=== PATIENT | female | born 1950 | race Caucasian/White ===

== ENCOUNTER 2016-09-25 09:27 | Outpatient (CLI) | payer MEDICARE, OTHER ==
[2016-09-25 18:41] LABS: BASOPHILS % (AUTO) 0.5 %; EOSINOPHILS # (AUTO) 0.3 10^3/uL (0.0-0.7); EOSINOPHILS % (AUTO) 4.7 %; HCT - HEMATOCRIT 45.4 % (37.0-47.0); HGB - HEMOGLOBIN 15.3 g/dL (12.0-16.0); LYMPHOCYTES # (AUTO) 2.9 10^3/uL (1.5-3.5); LYMPHOCYTES % (AUTO) 47.2 %; MEAN CORPUSCULAR HEMOGLOBIN 33.2 pg (27.0-31.0); MEAN CORPUSCULAR HGB CONC 33.7 g/dL (32.0-36.0); MEAN CORPUSCULAR VOLUME 98.6 fL (81.0-99.0); MEAN PLATELET VOLUME 8.2 fL (7.9-10.8); MONOCYTES # (AUTO) 0.5 10^3/uL (0.0-1.0); MONOCYTES % (AUTO) 8.4 %; NEUTROPHILS # (AUTO) 2.4 10^3/uL (1.5-6.6); NEUTROPHILS % (AUTO) 39.2 %; NUCLEATED RED BLOOD CELLS AUTO 0.1 /100WBC; RED CELL DISTRIBUTION WIDTH 15.2 % (12.0-15.0); UNCORRECTED WHITE BLOOD COUNT 6.1 x10^3/uL; WHITE BLOOD COUNT 6.1 x10^3/uL (4.8-10.8)
[2016-09-25 18:42] LABS: BILIRUBIN,URINE NEGATIVE (NEGATIVE)
[2016-09-25 18:58] LABS: UA w/ MICROSCOPIC CHARGE YES
[2016-09-25 19:04] LABS: ALBUMIN/GLOBULIN RATIO 1.4 (1.0-2.2); BILIRUBIN,TOTAL 0.4 mg/dL (0.2-1.0); BUN - BLOOD UREA NITROGEN 17 mg/dL (6-20); CALCIUM 9.2 mg/dL (8.5-10.3); CARBON DIOXIDE - CO2 27 mmol/L (21-32); CHLORIDE 106 mmol/L (101-111); CHOL/HDL RATIO 2.9 (<4.4); CHOLESTEROL 200 mg/dL; CREATININE 0.8 mg/dL (0.4-1.0); GFR - MDRD 72 (>89); GLUCOSE 111 mg/dL (70-100); HDL CHOLESTEROL 68 mg/dL; LDL/HDL RATIO 1.7 (<4.4); SODIUM 139 mmol/L (135-145); TOTAL PROTEIN 6.9 g/dL (6.7-8.2); TRIGLYCERIDES 90 mg/dL; VLDL CHOLESTEROL 18 mg/dL
[2016-09-25 19:35] LABS: UR CULTURE IF IND NOT INDICATED; WBC,URINE 0-3 /HPF (0-5)
== END 2016-09-25 09:28 | disposition home or self-care (01) ==
LOC: LAB.S 09:27
PROVIDERS: ATTEND Physician Assistant Medical
DX: Z00.00 Encounter for general adult medical examination without abnormal findings (principal); I10 Essential (primary) hypertension; E78.2 Mixed hyperlipidemia; Z79.899 Other long term (current) drug therapy
CPT/HCPCS: 36415; 80053; 80061; 81001; 81003; 84443; 85025; 87086

== ENCOUNTER 2016-10-30 15:15 | Outpatient (CLI) | payer MEDICARE ==
--- NOTE | 2016-10-30 16:00 | Ultrasound Report ---
THYROID ULTRASOUND: 10/30/2016 CLINICAL INDICATION: Hypothyroidism. TECHNIQUE: Real-time scanning was performed with healthcare sales representative static images obtained. FINDINGS: The right lobe measures 3.7 x 1.3 x 1.1 cm, and the left lobe measures 3.6 x 1.0 x 0.7 cm. The isthmus measures 2 mm. No focal parenchymal lesion is seen. No adenopathy is present. IMPRESSION: DIMINUTIVE THYROID, WITHOUT EVIDENCE OF A FOCAL NODULE. JOB #: [id number] EXT JOB #:[id number]
== END 2016-10-30 15:16 | disposition home or self-care (01) ==
LOC: DI 15:15
PROVIDERS: ATTEND Physician Assistant Medical
DX: E03.9 Hypothyroidism, unspecified (principal)
CPT/HCPCS: 76536

== ENCOUNTER 2016-10-30 15:18 | Outpatient (CLI) | payer MEDICARE ==
--- NOTE | 2016-11-01 16:15 | Mammography Report ---
DIGITAL SCREENING MAMMOGRAM: 10/30/2016 CLINICAL INDICATION: A 66-year-old with family history of breast cancer, for screening. COMPARISON: 11/2014, 10/2013, 02/2012, 07/2008. TECHNIQUE: Routine CC and MLO projections were obtained of the breasts. FINDINGS: The breasts again demonstrate heterogeneously dense fibroglandular parenchyma bilaterally. Coarse and punctate, typically benign calcifications are present. No suspicious masses, clustered mi crocalcifications, or regions of architectural distortion are identified. IMPRESSION: BENIGN FINDINGS. RECOMMENDATION: ROUTINE ANNUAL SCREENING UNLESS OTHERWISE CLINICALLY INDICATED. BIRADS CATEGORY 2-BENIGN FINDINGS. STANDARD QUALIFYING STATEMENTS 1. This examination was reviewed with the aid of Computer-Aided Detection (CAD). 2. A negative or benign imaging report should not delay biopsy if clinically suspicious findings are present. Consider surgical consultation if warranted. More than 5% of cancers are not identified by i maging. 3. Dense breasts may obscure an underlying neoplasm. JOB #: [id number] EXT JOB #:[id number]
== END 2016-10-30 15:19 | disposition home or self-care (01) ==
LOC: DI 15:18
PROVIDERS: ATTEND Physician Assistant Medical
DX: Z12.31 Encounter for screening mammogram for malignant neoplasm of breast (principal)
CPT/HCPCS: 77067

== ENCOUNTER 2016-11-27 10:49 | Outpatient (CLI) | payer MEDICARE ==
[2016-11-27 19:50] LABS: THYROID STIMULATING HORMONE 4.61 uIU/mL (0.34-5.60)
== END 2016-11-27 10:50 | disposition home or self-care (01) ==
LOC: LAB.S 10:49
PROVIDERS: ATTEND Physician Assistant Medical
DX: E03.9 Hypothyroidism, unspecified (principal)
CPT/HCPCS: 36415; 84439; 84443; 84481; 86376; 86800

== ENCOUNTER 2017-10-22 08:00 | Outpatient (CLI) | payer MEDICARE ==
[2017-10-22 18:00] LABS: BASOPHILS % (AUTO) 0.8 %; EOSINOPHILS % (AUTO) 3.2 %; HGB - HEMOGLOBIN 16.2 g/dL (12.0-16.0); LYMPHOCYTES % (AUTO) 36.6 %; MEAN CORPUSCULAR HEMOGLOBIN 33.3 pg (27.0-31.0); MEAN CORPUSCULAR VOLUME 97.9 fL (81.0-99.0); MEAN PLATELET VOLUME 8.3 fL (7.9-10.8); MONOCYTES % (AUTO) 7.8 %; NEUTROPHILS % (AUTO) 51.6 %; PLT - PLATELET COUNT 244 10^3/uL (130-450); RED BLOOD COUNT 4.88 10^6/uL (4.20-5.40); RED CELL DISTRIBUTION WIDTH 15.2 % (12.0-15.0)
[2017-10-22 18:17] LABS: ABNORMAL LYMPHS % (MANUAL) 0 %; BAND NEUTROPHILS % (MANUAL) 0 %
[2017-10-22 18:32] LABS: ALBUMIN/GLOBULIN RATIO 1.4 (1.0-2.2); ALKALINE PHOSPHATASE 41 IU/L (42-121); ALT ALANINE AMINOTRANSFERASE 33 IU/L (10-60); AST ASPARTATE AMINOTRANSFERASE 29 IU/L (10-42); BILIRUBIN,TOTAL 0.7 mg/dL (0.2-1.0); BUN - BLOOD UREA NITROGEN 14 mg/dL (6-20); CALCIUM 9.4 mg/dL (8.5-10.3); CARBON DIOXIDE - CO2 29 mmol/L (21-32); CHLORIDE 102 mmol/L (101-111); CHOL/HDL RATIO 2.6 (<4.4); CHOLESTEROL 184 mg/dL; CREATININE 0.7 mg/dL (0.4-1.0); GFR - MDRD 84 (>89); GLUCOSE 105 mg/dL (70-100); HDL CHOLESTEROL 71 mg/dL; LDL CHOLESTEROL,CALCULATED 95 mg/dL; LDL/HDL RATIO 1.3 (<4.4); SODIUM 140 mmol/L (135-145); TOTAL PROTEIN 6.8 g/dL (6.7-8.2); VLDL CHOLESTEROL 18 mg/dL
[2017-10-22 18:34] LABS: EOSINOPHILS # (MANUAL) 0.2 10^3/uL (0-0.7); LYMPHOCYTES # (MANUAL) 3.4 10^3/uL (1.5-3.5); LYMPHOCYTES % (MANUAL) 48 %; MONOCYTES # (MANUAL) 0.2 10^3/uL (0.0-1.0); NEUTROPHILS # (MANUAL) 3.2 10^3/uL (1.5-6.6); NEUTROPHILS % (MANUAL) 46 %
[2017-10-22 18:35] LABS: DIFFERENTIAL COMMENT MANUAL DIFFERENTIAL; PLATELET ESTIMATE, MANUAL NORMAL (130-450,000) (NORMAL); PLATELET MORPHOLOGY NORMAL APPEARANCE (NORMAL); RBC MORPHOLOGY (MULTIPLE) NORMAL APPEARANCE (NORMAL)
[2017-10-23 11:58] LABS: HEPATITIS C ANTIBODY NON-REACTIVE (NON-REACTIVE)
== END 2017-10-22 08:01 ==
LOC: LAB.S 08:00
PROVIDERS: ATTEND Physician Assistant Medical
DX: E78.2 Mixed hyperlipidemia (principal); R94.6 Abnormal results of thyroid function studies; E03.9 Hypothyroidism, unspecified; I10 Essential (primary) hypertension; Z79.899 Other long term (current) drug therapy; Z13.818 Encounter for screening for other digestive system disorders
CPT/HCPCS: 36415; 80053; 80061; 83721; 84443; 85025; 86803

== ENCOUNTER 2018-01-07 14:01 | Outpatient (CLI) | payer MEDICARE ==
--- NOTE | 2018-01-08 10:58 | DEXA Report ---
Reason: POSTMENOPAUSAL Procedure Date: 01/07/2018 Accession Number: [id number] / [id number] Procedure: DEX - Dexa Spine and/or Hip CPT Code: FULL RESULT: EXAM: Dexa Spine and/or Hip DATE: 01/07/2018 2:37 PM CLINICAL HISTORY: POSTMENOPAUSAL TECHNIQUE: Dual energy x-ray absorptiometry (DXA) was performed on a [employer] System. Regions measured are the AP Spine, femoral neck, and if needed forearm. COMPARISON: None. In accordance with the International Society for Clinical Densitometry (ISCD) guidelines, data from previous exams may be reanalyzed using current recommendations and techniques. This is done to allow a more accurate basis for comparison with the current study. FINDINGS: The data for the lumbar spine is as follows: BMD (g/cm/cm) T-SCORE Z-SCORE REGION L1 1.070 -0.5 1.5 L2 1.192 -0.1 2.0 L3 1.247 0.4 2.4 L4 1.180 -0.2 1.8 TOTAL 1.177 0.0 2.0 NOTE: All evaluable vertebrae are used for classification The data for the hip is as follows: BMD (g/cm/cm) T-SCORE Z-SCORE REGION Neck 0.821 -1.6 0.2 TOTAL 0.869 -1.1 0.5 NOTE: The femoral neck or total proximal femur, whichever is lowest, is used for classification. IMPRESSION: THE WHO CLASSIFICATION BASED ON THE INTERNATIONAL REFERENCE STANDARD IS OSTEOPENIA. THE FRACTURE RISK IS INCREASED. RECOMMENDATION: Patients with diagnosis of osteoporosis or osteopenia should have regular bone mineral density assessment. For those eligible for Medicare, routine testing is allowed once every 2 years. Testing frequency can be increased for patients who have rapidly progressing disease or for those who are receiving medical therapy to restore bone mass. COMMENT: World Health Organization (WHO) definitions for osteoporosis and osteopenia: NORMAL BMD: T-score at -1.0 or higher, fracture risk is low OSTEOPENIA BMD: T-score between -1.0 and -2.5, fracture risk is increased. OSTEOPOROSIS BMD: T-score at -2.5 or lower, fracture risk is high. National Osteoporosis Foundation recommends: 1. Obtain adequate dietary calcium (at least 1200 mg per day) and vitamin D (400-800 international units per day). 2. Participate, as appropriate, in regular weightbearing and muscle-strengthening exercise. 3. Avoid tobacco use and reduce alcohol and caffeine intake. 4. For more detailed information see the website at www.NOF.org.
== END 2018-01-07 14:02 | disposition home or self-care (01) ==
LOC: DI 14:01
PROVIDERS: ATTEND Physician Assistant Medical
DX: M85.89 Other specified disorders of bone density and structure, multiple sites (principal); Z78.0 Asymptomatic menopausal state
CPT/HCPCS: 77080

== ENCOUNTER 2018-01-07 14:04 | Outpatient (CLI) | payer MEDICARE ==
--- NOTE | 2018-01-10 14:44 | Mammography Report ---
Reason: SCREENING WITH SHERIN Procedure Date: 01/07/2018 Accession Number: [id number] / [id number] Procedure: JENNIFER - Screening Mammo w/Sherin CPT Code: FULL RESULT: EXAM: Screening Mammo w/Sherin DATE: 01/07/2018 3:04 PM CLINICAL HISTORY: 68-year-old female with family history of breast cancer in a sister at age 60. TECHNIQUE: Bilateral CC and MLO views were obtained. COMPARISON: 10/30/2016, 11/30/2014, 10/27/2013, 03/11/2012. FINDINGS: The breasts demonstrate heterogeneously dense fibroglandular parenchyma bilaterally. Coarse typically benign calcifications are again seen. A left upper breast intramammary lymph node is stable in appearance, typically benign. No suspicious masses, clustered microcalcifications, or regions of architectural distortion are identified. IMPRESSION: Benign findings RECOMMENDATION: Routine annual screening unless otherwise clinically indicated. BIRADS CATEGORY 2: Benign findings STANDARD QUALIFYING STATEMENTS: 1. This examination was not reviewed with the aid of Computer-Aided Detection (CAD). 2. A negative or benign imaging report should not delay biopsy if clinically suspicious findings are present. Consider surgical consultation if warrented. More than 5% of cancers are not identified by imaging. 3. Dense breasts may obscure an underlying neoplasm. 4. This examination was reviewed with the aid of 3D breast imaging (tomosynthesis).
== END 2018-01-07 14:05 | disposition home or self-care (01) ==
LOC: DI 14:04
PROVIDERS: ATTEND Physician Assistant Medical
DX: Z12.31 Encounter for screening mammogram for malignant neoplasm of breast (principal)
CPT/HCPCS: 77063; 77067

== ENCOUNTER 2018-03-25 08:00 | Outpatient (CLI) | payer MEDICARE ==
[2018-03-25 18:14] LABS: BASOPHILS % (AUTO) 0.5 %; EOSINOPHILS % (AUTO) 4.5 %; HGB - HEMOGLOBIN 16.1 g/dL (12.0-16.0); LYMPHOCYTES % (AUTO) 34.8 %; MEAN CORPUSCULAR HEMOGLOBIN 32.6 pg (27.0-31.0); MEAN CORPUSCULAR HGB CONC 32.7 g/dL (32.0-36.0); MEAN CORPUSCULAR VOLUME 99.7 fL (81.0-99.0); MEAN PLATELET VOLUME 8.2 fL (7.9-10.8); MONOCYTES % (AUTO) 7.7 %; NEUTROPHILS % (AUTO) 52.5 %; PLT - PLATELET COUNT 263 10^3/uL (130-450); RED BLOOD COUNT 4.94 10^6/uL (4.20-5.40); RED CELL DISTRIBUTION WIDTH 14.2 % (12.0-15.0); WHITE BLOOD COUNT 6.8 x10^3/uL (4.8-10.8)
[2018-03-25 19:01] LABS: ABNORMAL LYMPHS % (MANUAL) 0 %
[2018-03-25 20:31] LABS: BAND NEUTROPHILS % (MANUAL) 7 %; EOSINOPHILS # (MANUAL) 0.1 10^3/uL (0-0.7); LYMPHOCYTES # (MANUAL) 2.9 10^3/uL (1.5-3.5); LYMPHOCYTES % (MANUAL) 41 %; MONOCYTES # (MANUAL) 0.5 10^3/uL (0.0-1.0); NEUTROPHILS # (MANUAL) 3.3 10^3/uL (1.5-6.6); NEUTROPHILS % (MANUAL) 41 %
[2018-03-25 20:32] LABS: DIFFERENTIAL COMMENT MANUAL DIFFERENTIAL; PLATELET ESTIMATE, MANUAL NORMAL (130-450,000) (NORMAL); PLATELET MORPHOLOGY NORMAL APPEARANCE (NORMAL); RBC MORPHOLOGY (MULTIPLE) NORMAL APPEARANCE (NORMAL)
== END 2018-03-25 23:59 | disposition home or self-care (01) ==
LOC: LAB.S 08:00
PROVIDERS: ATTEND Physician Assistant Medical
DX: R68.89 Other general symptoms and signs (principal)
CPT/HCPCS: 36415; 85025

== ENCOUNTER 2018-07-15 10:54 | Outpatient (CLI) | payer MEDICARE | END 2018-07-15 10:55 | disposition home or self-care (01) | LOC: SC 10:54 | PROVIDERS: ATTEND Internal Medicine Pulmonary Disease | DX: G47.10 Hypersomnia, unspecified (principal); R06.81 Apnea, not elsewhere classified; G47.8 Other sleep disorders; R06.83 Snoring; Z87.891 Personal history of nicotine dependence | CPT/HCPCS: 99203; G0463; 99212 ==

== ENCOUNTER 2018-08-31 20:23 | Outpatient (CLI) | payer MEDICARE | END 2018-08-31 20:24 | disposition home or self-care (01) | LOC: SC 20:23 | PROVIDERS: ATTEND Internal Medicine Pulmonary Disease | DX: R09.02 Hypoxemia (principal) | CPT/HCPCS: 95810 ==

== ENCOUNTER 2018-10-21 08:16 | Outpatient (CLI) | payer MEDICARE ==
[2018-10-21 09:19] VITALS: BP 118/60
--- NOTE | 2018-10-21 09:19 | SLEEP CARE CONSULTATION ---
Information from patient questionnaire entered by Mami Baxter. I have reviewed and concur with the information entered by Mami Baxter. This document represents the service I personally performed and the decisions made by me, Yomaira Hansen RN, MSN, CREDIT ASSESSMENT ANALYST. History of Present Illness Initial [place] Sleepiness Scale score: 5 Additional HPI information: HONG GOMEZ returns for follow up of the recently performed polysomnography. The patient was informed of the polysomnography findings as noted below in study portion. I explained the pathophysiology behind obstructive sleep apnea. Patient does not have significant sleep disordered breathing but has loud snoring. She was advised how weight gain could increase the risk of developing sleep apnea in the future. Snoring is generally reduced by weight loss but patient at normal weight. Snoring can also be treated with an oral appliance from a dentist. Advised to check insurance coverage if she chooses to consider. In addition, an ENT evaluation can be done to see if other treatment is indicated. Patient counseled not drink alcohol less than 4 hours before bedtime as it can increase snoring and apnea. Patient was cautioned about risks of drowsy driving until sleepiness symptoms resolve. Patient denies drowsy driving. AAS patient education on snoring and sleep apnea given and reviewed. Sleep Study - Polysomnography Polysomnography findings: The quality of the study is good. The patient had normal sleep efficiency. The sleep architecture was normal as well. Respiratory monitoring showed no significant sleep disordered breathing (AHI = 3.1). There was mild hypoxia with 29 minutes spent with oxygen saturation at or below 88% (myranda oxygen saturation of 85%). The few respiratory events occurred mainly during REM sleep (supine AHI = 4.1; non-supine = 2.94). Snore was loud in intensity. There was no periodic leg movement of sleep. Cardiac rhythm was normal sinus rhythm without significant arrhythmia. No abnormal behavior (parasomnia) observed during the night. Allergies and Home Medications Known drug allergies: Yes (possibly sulfa) Home medication list reviewed: Yes Allergy and home medication list: Amlodipine Besylate 5mg tab one daily Hydrochlorothiazide 12.5mg tab one daily Metoprolol 25mg tab one twice daily Atorvastatin 20mg tab one daily Multivitamin Tab one daily Vitamin D Tab Magnesium Tab Review of Systems Review of systems same as previous: Yes Cardiovascular: reports: high blood pressure Ear/Nose/Throat: reports: nose bleeds, wisdom teeth removed Immunologic: reports: sneezing, allergies to food or environment Physical Exam Blood Pressure: 118/60 Cuff size: regular Heart Rate: 53 O2 Saturation: 98 Weight change since last visit: 113.8 Impression and Plan Snoring but no significant sleep disordered breathing. Patient advised that often weight loss will reduce snoring as well as apnea risk. However, she is at normal weight so no weight loss is indicated. She is advised though not to gain weight as it could increase risk of developing apnea in the future. An oral appliance can also be used for snoring. This would require a dental consultation. Patient cautioned not to use other online appliances as can cause bite issues. A list of accredited dentists in area and one local dentist who makes oral appliances given to consider. Patient is advised to check if insurance will cover. An ENT consult can also be helpful to determine if any other treatment is an option. In addition, since she reports chronic nasal congestion which can contribute to snoring, she is advised to follow up with PCP for further evaluation and for referral to ENT. 2. Hypoxemia, mild, patient advised to follow up with PCP for further evaluation as she spent 29 minutes with oxygen saturation at or below 88%. A PFT may be indicated because of smoking history. * Do not gain weight * Avoid alcohol consumption near bedtime * The patient is cautioned about driving until sleepiness is completely resolved. * Consider ENT consultation for further evaluation of snoring. * Follow up with PCP for further evaluation of hypoxemia/nasal congestion. * Return as needed. I spent 100% of this [38] minute visit face to face with the patient with greater than 50% of this was spent time counseling the patient and coordination of care.
== END 2018-10-21 08:17 | disposition home or self-care (01) ==
LOC: SC 08:16
PROVIDERS: ATTEND Nurse Practitioner Family
DX: R06.83 Snoring (principal); R09.02 Hypoxemia
CPT/HCPCS: 99214; G0463; 99212

== ENCOUNTER 2019-01-13 12:51 | Outpatient (CLI) | payer MEDICARE ==
--- NOTE | 2019-01-14 08:06 | Mammography Report ---
Reason: ROUTINE MAMMO Procedure Date: 01/13/2019 Accession Number: [id number] / [id number] Procedure: MGS - Screening Mammo Dig Bilat CPT Code: Final Report FULL RESULT: EXAM: Screening Mammo Dig Bilat DATE: 01/13/2019 1:09 PM CLINICAL HISTORY: Screening encounter. Family history of breast cancer in the mother at the age of 15 and a sister at the age of 50. TECHNIQUE: (B) - Bilateral CC and MLO views were obtained. COMPARISON: 01/07/2018 through 03/11/2012. PARENCHYMAL PATTERN: (D) - The breast(s) demonstrate(s) heterogeneously dense fibroglandular parenchyma. FINDINGS: There are coarse typically benign calcifications. There are no suspicious masses, calcifications, or areas of distortion. IMPRESSION: Benign findings. BI-RADS category 2. RECOMMENDATION: (ANNUAL) - Recommend routine annual screening mammography. BI-RADS CATEGORY: (2) - Benign Findings. STANDARD QUALIFYING STATEMENTS: 1. This examination was reviewed with the aid of Computer-Aided Detection (CAD). 2. A negative or benign imaging report should not preclude biopsy if clinically suspicious findings are present. 3. Dense breasts may obscure an underlying neoplasm. 4. This examination was reviewed without the aid of 3D breast imaging (tomosynthesis).
== END 2019-01-13 12:52 | disposition home or self-care (01) ==
LOC: DI.S 12:51
PROVIDERS: ATTEND Nurse Practitioner
DX: Z12.31 Encounter for screening mammogram for malignant neoplasm of breast (principal); Z80.3 Family history of malignant neoplasm of breast
CPT/HCPCS: 77067

== ENCOUNTER 2019-04-22 08:14 | Outpatient (CLI) | payer MEDICARE ==
[2019-04-22 10:01] LABS: BASOPHILS # (AUTO) 0.1 10^3/uL (0.0-0.1); BASOPHILS % (AUTO) 0.7 %; EOSINOPHILS # (AUTO) 0.2 10^3/uL (0.0-0.7); HGB - HEMOGLOBIN 15.8 g/dL (12.0-16.0); LYMPHOCYTES # (AUTO) 2.8 10^3/uL (1.5-3.5); LYMPHOCYTES % (AUTO) 37.9 %; MEAN CORPUSCULAR HEMOGLOBIN 32.4 pg (27.0-31.0); MEAN CORPUSCULAR HGB CONC 32.6 g/dL (32.0-36.0); MEAN CORPUSCULAR VOLUME 99.4 fL (81.0-99.0); MEAN PLATELET VOLUME 9.5 fL (7.9-10.8); MONOCYTES # (AUTO) 0.6 10^3/uL (0.0-1.0); MONOCYTES % (AUTO) 7.3 %; NEUTROPHILS # (AUTO) 3.9 10^3/uL (1.5-6.6); NEUTROPHILS % (AUTO) 51.8 %; PLT - PLATELET COUNT 261 10^3/uL (130-450); RED BLOOD COUNT 4.87 10^6/uL (4.20-5.40); RED CELL DISTRIBUTION WIDTH 14.5 % (12.0-15.0); WHITE BLOOD COUNT 7.5 x10^3/uL (4.8-10.8)
[2019-04-22 10:33] LABS: ALBUMIN/GLOBULIN RATIO 1.3 (1.0-2.2); ALKALINE PHOSPHATASE 52 IU/L (42-121); ALT ALANINE AMINOTRANSFERASE 26 IU/L (10-60); AST ASPARTATE AMINOTRANSFERASE 22 IU/L (10-42); BILIRUBIN,TOTAL 0.6 mg/dL (0.2-1.0); BUN - BLOOD UREA NITROGEN 14 mg/dL (6-20); CALCIUM 9.1 mg/dL (8.5-10.3); CARBON DIOXIDE - CO2 29 mmol/L (21-32); CHLORIDE 103 mmol/L (101-111); CHOL/HDL RATIO 2.7 (<4.4); CHOLESTEROL 181 mg/dL; CREATININE 0.7 mg/dL (0.4-1.0); GFR - MDRD 83 (>89); GLUCOSE 107 mg/dL (70-100); HDL CHOLESTEROL 67 mg/dL; LDL CHOLESTEROL,CALCULATED 99 mg/dL; LDL/HDL RATIO 1.5 (<4.4); SODIUM 141 mmol/L (135-145); TOTAL PROTEIN 7.1 g/dL (6.7-8.2); VLDL CHOLESTEROL 15 mg/dL
== END 2019-04-22 08:15 | disposition home or self-care (01) ==
LOC: LAB.S 08:14
PROVIDERS: ATTEND Nurse Practitioner
DX: Z00.00 Encounter for general adult medical examination without abnormal findings (principal); D75.1 Secondary polycythemia; Z79.899 Other long term (current) drug therapy; E03.9 Hypothyroidism, unspecified; R73.9 Hyperglycemia, unspecified; I10 Essential (primary) hypertension
CPT/HCPCS: 36415; 80053; 80061; 83721; 85025

== ENCOUNTER 2019-04-29 14:48 | Outpatient (CLI) | payer MEDICARE ==
[2019-04-29 18:14] LABS: THYROID STIMULATING HORMONE 6.96 uIU/mL (0.34-5.60)
[2019-04-29 18:16] LABS: FREE T4 (FREE THYROXINE) 0.69 ng/dL (0.58-1.64)
== END 2019-04-29 14:49 | disposition home or self-care (01) ==
LOC: LAB.S 14:48
PROVIDERS: ATTEND Nurse Practitioner
DX: Z00.00 Encounter for general adult medical examination without abnormal findings (principal); D75.1 Secondary polycythemia; Z79.899 Other long term (current) drug therapy; E03.9 Hypothyroidism, unspecified; R73.9 Hyperglycemia, unspecified; I10 Essential (primary) hypertension
CPT/HCPCS: 36415; 84439; 84443; 84481

== ENCOUNTER 2019-10-31 08:00 | Outpatient (CLI) | payer MEDICARE | END 2019-10-31 08:01 | disposition home or self-care (01) | LOC: COV 08:00 | PROVIDERS: ATTEND Family Medicine | DX: Z20.828 Contact with and (suspected) exposure to other viral communicable diseases (principal) ==

== ENCOUNTER 2020-06-16 07:06 | Outpatient (CLI) | payer MEDICARE ==
[2020-06-16 14:27] LABS: BASOPHILS # (AUTO) 0.1 10^3/uL (0.0-0.1); BASOPHILS % (AUTO) 0.7 %; EOSINOPHILS # (AUTO) 0.2 10^3/uL (0.0-0.7); EOSINOPHILS % (AUTO) 2.8 %; HCT - HEMATOCRIT 49.8 % (37.0-47.0); HGB - HEMOGLOBIN 15.8 g/dL (12.0-16.0); LYMPHOCYTES # (AUTO) 3.5 10^3/uL (1.5-3.5); LYMPHOCYTES % (AUTO) 48.3 %; MEAN CORPUSCULAR HEMOGLOBIN 31.9 pg (27.0-31.0); MEAN CORPUSCULAR HGB CONC 31.7 g/dL (32.0-36.0); MEAN CORPUSCULAR VOLUME 100.4 fL (81.0-99.0); MEAN PLATELET VOLUME 9.9 fL (7.9-10.8); MONOCYTES # (AUTO) 0.6 10^3/uL (0.0-1.0); MONOCYTES % (AUTO) 8.6 %; NEUTROPHILS # (AUTO) 2.8 10^3/uL (1.5-6.6); NEUTROPHILS % (AUTO) 39.3 %; PLT - PLATELET COUNT 280 10^3/uL (130-450); RED BLOOD COUNT 4.96 10^6/uL (4.20-5.40); RED CELL DISTRIBUTION WIDTH 14.6 % (12.0-15.0); WHITE BLOOD COUNT 7.2 x10^3/uL (4.8-10.8)
[2020-06-16 15:47] LABS: ALBUMIN 4.1 g/dL (3.2-5.5); ALBUMIN/GLOBULIN RATIO 1.4 (1.0-2.2); ALKALINE PHOSPHATASE 54 IU/L (42-121); ALT ALANINE AMINOTRANSFERASE 29 IU/L (10-60); AST ASPARTATE AMINOTRANSFERASE 30 IU/L (10-42); BILIRUBIN,TOTAL 0.6 mg/dL (0.2-1.0); BUN - BLOOD UREA NITROGEN 21 mg/dL (6-20); CALCIUM 9.1 mg/dL (8.5-10.3); CARBON DIOXIDE - CO2 28 mmol/L (21-32); CHLORIDE 100 mmol/L (101-111); CHOL/HDL RATIO 2.6 (<4.4); CHOLESTEROL 202 mg/dL; CREATININE 0.8 mg/dL (0.4-1.0); GFR - MDRD 71 (>89); GLUCOSE 111 mg/dL (70-100); HDL CHOLESTEROL 78 mg/dL; LDL CHOLESTEROL,CALCULATED 107 mg/dL; LDL/HDL RATIO 1.4 (<4.4); POTASSIUM 3.6 mmol/L (3.5-5.0); SODIUM 139 mmol/L (135-145); TOTAL PROTEIN 7.1 g/dL (6.7-8.2); TRIGLYCERIDES 84 mg/dL; VLDL CHOLESTEROL 17 mg/dL
[2020-06-16 15:52] LABS: THYROID STIMULATING HORMONE 14.03 uIU/mL (0.34-5.60)
[2020-06-16 16:28] LABS: FREE T4 (FREE THYROXINE) 0.84 ng/dL (0.58-1.64)
== END 2020-06-16 07:07 | disposition home or self-care (01) ==
LOC: LAB.S 07:06
PROVIDERS: ATTEND Nurse Practitioner
DX: I10 Essential (primary) hypertension (principal); E03.9 Hypothyroidism, unspecified; R94.6 Abnormal results of thyroid function studies; R73.9 Hyperglycemia, unspecified; E78.2 Mixed hyperlipidemia; D75.1 Secondary polycythemia; R68.89 Other general symptoms and signs
CPT/HCPCS: 36415; 80053; 80061; 83721; 84439; 84443; 84481; 85025

== ENCOUNTER 2021-09-20 07:42 | Outpatient (CLI) | payer MEDICARE ==
--- NOTE | 2021-09-21 08:13 | Mammography Report ---
BILATERAL DIGITAL SCREENING MAMMOGRAM 3D/2D: 09/20/2021 CLINICAL: Routine screening. Family history of breast cancer. Comparison is made to exams dated: 01/13/2019 mammogram, 01/07/2018 mammogram, 10/30/2016 mammogram, a nd 11/30/2014 mammogram - [facility]. There are scattered fibroglandular elements i n both breasts. No significant masses, calcifications, or other findings are seen in either breast. There has been no significant interval change. IMPRESSION: NEGATIVE There is no mammographic evidence of malignancy. A 1 year screening mammogram is recommended. Based on the Tyrer Cuzick model (a risk assessment model) the patients lifetime risk is 3.2% and her 10 year risk is 2.0%. According to the ACR, ACS, and NCCN guidelines, an annual breast MRI exam geraldo g with mammogram is recommended if the patients lifetime risk is 20% or greater. This exam was interpreted at Station ID: [id number]. NOTE: For mammograms, a report in lay terms will be sent to the patient. Approximately 15% of breast malignancies will not be visualized mammographically. In the management of a palpable breast mass, a negative mammogram must not discourage biopsy of a clinically suspicious lesion. Electronically Signed By: Max patel/reggie:09/20/2021 13:21:11 ACR BI-RADS Category 1: Negative 3341F PARENCHYMAL PATTERN: (A) - The breast(s) demonstrate(s) scattered fibroglandular densities. BI-RADS CATEGORY: (1) - 1 RECOMMENDATION: (ANNUAL) - Recommend routine annual screening mammography. [id number] 1 year screening LATERALITY: (B)
== END 2021-09-20 07:43 | disposition home or self-care (01) ==
LOC: DI.S 07:42
PROVIDERS: ATTEND Nurse Practitioner Family
DX: Z12.31 Encounter for screening mammogram for malignant neoplasm of breast (principal); Z80.3 Family history of malignant neoplasm of breast

== ENCOUNTER 2022-10-02 13:16 | Outpatient (CLI) | payer MEDICARE ==
--- NOTE | 2022-10-03 11:14 | Mammography Report ---
BILATERAL DIGITAL SCREENING MAMMOGRAM 3D/2D: 10/02/2022 CLINICAL: Routine screening. Family history of breast cancer. Comparison is made to exams dated: 09/20/2021 mammogram, 01/13/2019 mammogram, and 01/07/2018 mammogra m - [facility]. Both breasts are heterogeneously dense, which may obscure small masses (category c / 51-75% glandular tissue). No significant masses, calcifications, or other findings are seen in either breast. There has been no significant interval change. IMPRESSION: NEGATIVE There is no mammographic evidence of malignancy. A 1 year screening mammogram is recommended. Based on the Tyrer Cuzick model (a risk assessment model) the patients lifetime risk is 4.8% and her 10 year risk is 3.3%. According to the ACR, ACS, and NCCN guidelines, an annual breast MRI exam geraldo g with mammogram is recommended if the patients lifetime risk is 20% or greater. This exam was interpreted at Station ID: [id number]. NOTE: For mammograms, a report in lay terms will be sent to the patient. Approximately 15% of breast malignancies will not be visualized mammographically. In the management of a palpable breast mass, a negative mammogram must not discourage biopsy of a clinically suspicious lesion. Electronically Signed By: Henrik morris/reggie:10/02/2022 17:18:46 letter sent: No_Letter ACR BI-RADS Category 1: Negative 3341F PARENCHYMAL PATTERN: (D) - The breast(s) demonstrate(s) heterogeneously dense fibroglandular brianna grimaldo. BI-RADS CATEGORY: (1) - 1 Mammogram [id number] 1 year screening LATERALITY: (B)
== END 2022-10-02 13:17 | disposition home or self-care (01) ==
LOC: DI.S 13:16
PROVIDERS: ATTEND Registered Nurse
DX: Z12.31 Encounter for screening mammogram for malignant neoplasm of breast (principal); Z80.3 Family history of malignant neoplasm of breast

== ENCOUNTER 2022-12-30 11:42 | Emergency (ER) | payer MEDICARE ==
[2022-12-30 12:10] LABS: BASOPHILS # (AUTO) 0.1 10^3/uL (0.0-0.1); BASOPHILS % (AUTO) 0.6 %; EOSINOPHILS % (AUTO) 0.1 %; HCT - HEMATOCRIT 44.2 % (37.0-47.0); HGB - HEMOGLOBIN 14.7 g/dL (12.0-16.0); LYMPHOCYTES # (AUTO) 1.2 10^3/uL (1.5-3.5); MEAN CORPUSCULAR HEMOGLOBIN 29.1 pg (27.0-31.0); MEAN CORPUSCULAR HGB CONC 33.3 g/dL (32.0-36.0); MEAN CORPUSCULAR VOLUME 87.5 fL (81.0-99.0); MEAN PLATELET VOLUME 8.5 fL (7.9-10.8); MONOCYTES # (AUTO) 0.5 10^3/uL (0.0-1.0); NEUTROPHILS # (AUTO) 6.7 10^3/uL (1.5-6.6); NEUTROPHILS % (AUTO) 78.9 %; PLT - PLATELET COUNT 466 10^3/uL (130-450); RED BLOOD COUNT 5.05 10^6/uL (4.20-5.40); RED CELL DISTRIBUTION WIDTH 15.2 % (12.0-15.0); WHITE BLOOD COUNT 8.5 x10^3/uL (4.8-10.8)
[2022-12-30 12:24] LABS: ALBUMIN 4.1 g/dL (3.2-5.5); BILIRUBIN,TOTAL 0.4 mg/dL (0.2-1.0); CALCIUM 9.8 mg/dL (8.5-10.3); CREATININE 0.8 mg/dL (0.6-1.3); POTASSIUM 2.9 mmol/L (3.5-4.5); TOTAL PROTEIN 8.3 g/dL (6.4-8.9)
[2022-12-30 14:25] VITALS: O2SAT 100
[2022-12-30] MEDS ORDERED: SODIUM CHLORIDE 0.9% 1,000 ML IV STA ×2 (14:28→15:59)
[2022-12-30] MEDS ORDERED: POTASSIUM CHLOR 10 MEQ/100 ML 10 MEQ/100 ML BAG IV ONE (14:28)
[2022-12-30] MEDS ORDERED: POTASSIUM BICARB 25 MEQ TABLET PO STA (14:28)
--- NOTE | 2022-12-30 14:31 | ED Physician Documentation ---
History of Present Illness - Stated complaint Stated Complaint: WEAK/NOT EATING - Chief complaint Chief Complaint: General - History obtained from History obtained from: Patient - History of Present Illness Timing: How many weeks ago (1) - Additonal information Additional information: Loren Hussein is a 72-year-old female who reports that over the past week she has had a decreased energy level and feels unwell. She does not have specific symptoms as such as cough congestion or aches or pains. She indicates that she has been getting up to go to the bathroom about 3 times per night and her usually is usually is to and she has been drinking extra fluids. She has been told by her primary care doctor at her visit in October that she has some issue with diabetes at that time her sugar was in the 160 range. Patient indicates that she has decreased appetite and has stopped eating candy and sugar products and despite this continues to feel unwell. Review of Systems Constitutional: denies: Fever, Chills, Myalgias Eyes: denies: Decreased vision Ears: denies: Ear pain Nose: reports: Rhinorrhea / runny nose (resolved), Sinus pressure / pain (resolved from 3 wks ago). denies: Congestion Throat: denies: Dental pain / toothache, Oral lesions / sores, Sore throat Cardiac: denies: Chest pain / pressure, Palpitations Respiratory: reports: Cough (slight baseline cough not changed). denies: Dyspnea GI: denies: Abdominal Pain, Nausea, Vomiting, Constipation, Diarrhea : reports: Frequency. denies: Dysuria, Hematuria Skin: denies: Rash Musculoskeletal: denies: Neck pain, Back pain, Extremity pain Neurologic: reports: Generalized weakness. 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 - Present Medications Home Medications: Ambulatory Orders Medication Instructions Recorded Confirmed Amlodipine Besylate 10 mg PO DAILY 05/13/18 09/22/19 Atorvastatin Calcium 20 mg PO DAILY 05/13/18 09/22/19 Metoprolol Tartrate 25 mg PO DAILY 05/13/18 09/22/19 hydroCHLOROthiazide 25 mg PO DAILY 05/13/18 09/22/19 [Hydrochlorothiazide] - Allergies Allergies/Adverse Reactions: Allergies Allergy/AdvReac Type Severity Reaction Status Date / Time No Known Drug Allergies Allergy Verified 12/30/22 11:46 - Social History Smoking Status: Former smoker PD ED PE NORMAL - Vitals Vital signs reviewed: Yes (wide pulse pressure hypotensive diastolic) - General General: Alert and oriented X 3, No acute distress, Well developed/nourished - HEENT HEENT: Atraumatic, PERRL, EOMI, Ears normal, Pharynx benign, Dentition benign, Other (dry mucous membranes ) - Neck Neck: Supple, no meningeal sign, No bony TTP - Cardiac Cardiac: RRR, No murmur - Respiratory Respiratory: No respiratory distress, Clear bilaterally - Abdomen Abdomen: Normal bowel sounds, Soft, Non tender, Non distended, No organomegaly - Back Back: No CVA TTP, No spinal TTP - Derm Derm: Normal color, Warm and dry, No rash - Extremities Extremities: No deformity, No edema - Neuro Neuro: Alert and oriented X 3, log getter 2-12 intact, No motor deficit, No sensory deficit, Normal speech Eye Opening: Spontaneous Motor: Obeys Commands Verbal: Oriented GCS Score: 15 - Psych Psych: Normal mood, Normal affect Results - Vitals Vitals: Vital Signs - 24 hr 12/30/22 12/30/22 11:46 13:50 Temperature 36.3 C L Heart Rate 99 78 Respiratory 18 14 Rate Blood Pressure 106/35 L 153/78 H O2 Saturation 96 100 Oxygen O2 Source Room air - Labs Labs: Laboratory Tests 12/30/22 12/30/22 12:06 12:06 WBC 8.5 RBC 5.05 Hgb 14.7 Hct 44.2 MCV 87.5 MCH 29.1 MCHC 33.3 RDW 15.2 H Plt Count 466 H MPV 8.5 Neut # (Auto) 6.7 H Lymph # (Auto) 1.2 L [place] # (Auto) 0.5 Eos # (Auto) 0.0 Baso # (Auto) 0.1 Absolute Nucleated RBC 0.00 Nucleated RBC % 0.0 Sodium 132 L Potassium 2.9 L Chloride 90 L Carbon Dioxide 30 Anion Gap 12.0 BUN 18 Creatinine 0.8 Estimated GFR (MDRD) 71 L Glucose 173 H Calcium 9.8 Total Bilirubin 0.4 AST 15 ALT 13 Alkaline Phosphatase 81 Total Protein 8.3 Albumin 4.1 Globulin 4.2 Albumin/Globulin Ratio 1.0 Lipase 16 Procedures - IVC sono (time) 8075 Bedside IVC sono: IVC measures (cm) (0.66), IVC collapsed c insp (cm) (complete), Dehydration (est 3 liter deficit) PD Medical Decision Making - ED course Complexity details: reviewed old records, reviewed results, re-evaluated patient, considered differential, d/w patient Reviewed Lab Results: We reviewed a complete blood count showing a normal white blood cell count normal hemoglobin hematocrit and platelets are elevated at 466,000. The patient has always had normal platelets previously. Her hemoglobin has previously been concentrated significantly thought to be secondary to sleep apnea. Chemistries show a sodium low at 132 a potassium low at 2.9 and a chloride low at 90. Glucose is elevated at 173. Liver functions are all normal, calcium is normal. kidney function is normal with a BUN of 18 and creatinine of 0.8. I interpret these laboratory values in the context of this patients visit to be consistent with the level of dehydration (profound dehydration at the level of desiccation encephalopathy) discovered on interrogation of the IVC with POCUS. ED course: 72-year-old Loren Hussein presented to the emergency department today just not feeling well. We did discover that she had a little bit of an elevated blood glucose and low potassium and sodium. We went further and interrogated the IVC with POCUS and found that she was significantly or profoundly dehydrated on the order of desiccation encephalopathy. She was given intravenous saline begin to feel better right away and is now up to the bathroom to provide a sample. We are going to infuse a second liter of saline and at the time of shift change a urinalysis is pending as well as a hemoglobin A1c. Departure - Departure Clinical Impression: Dehydration, Hypokalemia Condition: Stable Instructions: ED Dehydration, ED Potassium Deficiency Follow-Up: Kelly Schilling ARNP [Primary Care Provider] - Comments: Loren, today looks like you are profoundly dehydrated and this is likely why you felt so poorly. Getting this dehydrated usually requires something significant to make it happen. Either not drinking any fluid for days on end, vomiting excessively, diarrhea or diabetes. Your blood sugar has been mildly elevated and I suspect diabetes. A follow-up with your primary care doctor is indicated.
[2022-12-30 17:23] LABS: BILIRUBIN,URINE NEGATIVE (NEGATIVE); GLUCOSE, URINE (UA) NEGATIVE (NEGATIVE); KETONES,URINE (UA) NEGATIVE (NEGATIVE); LEUKOCYTE ESTERASE, URINE NEGATIVE (NEGATIVE); NITRITE,URINE NEGATIVE (NEGATIVE); OCCULT BLOOD,URINE MODERATE (NEGATIVE); PROTEIN,URINE NEGATIVE (NEGATIVE); UROBILINOGEN,URINE 0.2 (NORMAL) E.U./dL (NORMAL)
[2022-12-30 17:26] LABS: CLARITY,URINE HAZY (CLEAR)
[2022-12-30 17:34] LABS: BACTERIA,URINE None Seen /HPF (None Seen); SQUAMOUS EPITHELIAL CELL,UR NONE SEEN (<= Few); WBC,URINE 0-3 /HPF (0-5)
[2022-12-30 18:36] LABS: ESTIMATED AVERAGE GLUCOSE 131 mg/dL (70-100); HEMOGLOBIN A1c% 6.2 % (4.27-6.07)
--- NOTE | 2022-12-30 18:59 | ED Physician Documentation ---
ED Addendum - Addendum Addendum: 12/30/22 19:06 Patient signed out to me by Dr. Spivey awaiting urinalysis results. There is no evidence of UTI on urinalysis. No bacteria. Patient is asymptomatic. She will follow-up with her doctor for further care and further investigation of her possible diabetes. Patient counseled regarding signs and symptoms for which I believe and urgent re-evaluation would be necessary. Patient with good understanding of and agreement to plan and is comfortable going home at this time This document was made in part using voice recognition software. While efforts are made to proofread this document, sound alike and grammatical errors may occur. Departure - Departure Disposition: 01 Home, Self Care Clinical Impression: Dehydration, Hypokalemia, Hyperglycemia Condition: Stable Instructions: ED Dehydration, ED Potassium Deficiency, ED Hyperglycemia New Susp Diabetes Follow-Up: Kelly Schilling ARNP [Primary Care Provider] - Comments: Loren, today looks like you are profoundly dehydrated and this is likely why you felt so poorly. Getting this dehydrated usually requires something significant to make it happen. Either not drinking any fluid for days on end, vomiting excessively, diarrhea or diabetes. Your blood sugar has been mildly elevated and I suspect diabetes. A follow-up with your primary care doctor is indicated. You do have 1 more blood test pending called an A1c, this can be followed up by your primary care provider, it is a measure of your blood sugar over the past 3 months and will help determine if you have diabetes.
[2022-12-30 19:37] VITALS: BP 140/70
== END 2022-12-30 19:36 | disposition home or self-care (01) ==
LOC: ED 11:42
DX: E86.0 Dehydration (principal); E87.6 Hypokalemia; R73.9 Hyperglycemia, unspecified; Z87.891 Personal history of nicotine dependence
CPT/HCPCS: 36415; 80053; 81001; 83036; 83690; 85025; 96361; 96365; 99284; A9270; 81003; 87086

== ENCOUNTER 2023-01-17 15:57 | Outpatient (CLI) | payer MEDICARE ==
[2023-01-17] MEDS ORDERED: iohexoL-300 100 ML VIAL IVP ONE (20:57)
[2023-01-17] MEDS ORDERED: DIATRIZOATE MEGLU/DIATRIZO SOD 30 ML BOTTLE PO ONE (20:57)
--- NOTE | 2023-01-17 21:35 | CT Report ---
PROCEDURE: ABDOMEN/PELVIS W INDICATIONS: WEIGHT LOSS, ABD MASS CONTRAST: 100mL Omni 300 TECHNIQUE: After the administration of IV contrast, 5 mm thick sections acquired from the diaphragms to the symp hysis. 5 mm thick coronal and sagittal reformats were acquired. For radiation dose reduction, the f ollowing was used: automated exposure control, adjustment of mA and/or kV according to patient size. COMPARISON: CT abdomen and pelvis, 09/01/2013. FINDINGS: Image quality: Excellent. Lung bases and heart: There is a large lobulated mass in the right lower lobe measuring 5.0 x 6.2 cm, highly suspicious for primary lung cancer. Liver: No solid mass. Normal size. A small hypodense nodule near the gallbladder fossa is probably a cyst. Gallbladder and biliary tree: , Is contracted. Spleen: No splenomegaly. Pancreas: No pancreatic ductal dilation. Adrenals: No adrenal nodule. Kidneys and ureters: No hydronephrosis. No renal cystic lesion which requires follow up. There is a l arge fat-containing mass in the left kidney measuring 4.3 x 3.1 x 3.8 cm, most likely an angiomyolipo ma. Previously, a similar mass in the area measures 6.7 x 6.8 x 5.3 cm. There are postsurgical change s in the left kidney since the last exam. Bowel and peritoneum: No bowel distension. No pathologic free fluid. Diverticulosis without acute div erticulitis. There is a small hepatic hypodensity in the falciform ligament, probably a focal fat. Lymph nodes: No central or retroperitoneal adenopathy. Vessels: No infrarenal aortic aneurysm. PELVIS Reproductive organs: Unremarkable. Bladder: No abnormal wall thickening, accounting for underdistension. Pelvic lymph nodes: No pelvic adenopathy by size criteria. Bones: No aggressive osseous abnormality. Other: No significant ventral or inguinal hernia. IMPRESSION: 1. A large lobular mass in the right lower lobe measuring 5.0 x 6.2 cm, highly suspicious for primary lung cancer. The mass is amenable for CT-guided percutaneous biopsy. 2. A 4.3 x 3.1 x 3.8 cm fat-containing mass in the left kidney, most likely a angiomyolipoma. Compare d to the last exam, it has decreased in size. Postsurgical changes were noted in left kidney, probabl y related to prior surgical resection. 3. Diverticulosis without acute diverticulitis. 4. No lymphadenopathy in abdomen or pelvis. Reviewed by: Evie Hernandez MD on 01/17/2023 9:34 PM PST Approved by: Evie Hernandez MD on 01/17/2023 9:34 PM PST Station ID: [id number]
== END 2023-01-17 15:58 | disposition home or self-care (01) ==
LOC: DI 15:57
PROVIDERS: ATTEND Registered Nurse
DX: R91.8 Other nonspecific abnormal finding of lung field (principal); N28.9 Disorder of kidney and ureter, unspecified; K57.30 Diverticulosis of large intestine without perforation or abscess without bleeding
CPT/HCPCS: 74177; Q9963; Q9967

== ENCOUNTER 2023-01-18 09:25 | Emergency (ER) | payer MEDICARE ==
--- NOTE | 2023-01-18 10:20 | ED Physician Documentation ---
PD HPI ABD PAIN - Stated complaint Stated Complaint: WEAKNESS - Chief complaint Chief Complaint: General - History obtained from History obtained from: Patient - History of Present Illness Timing - onset: How many months ago (2) Timing - duration: Months (2) Timing - details: Gradual onset, Still present Quality: Other (poor appetite, with some nausea, but mainly just not hungry. Has had 14 lb weight loww without trying to in past 2 months. General fatigue.) Worsened by: Eating (increased nausea). No: Breathing Associated symptoms: Nausea, Dysuria. No: Fever, Vomiting, Diarrhea, Constipation Similar symptoms before: Has not had sx before Recently seen: Clinic (seen by PCP with blood tests done outpt earlier this week and had abd/pelvic CT done outpt, that was done yesterday late afternoon and pt does not know results as yet.) Review of Systems Constitutional: reports: Fatigue, Weight Loss. denies: Fever, Chills, Myalgias Nose: denies: Rhinorrhea / runny nose, Congestion Throat: denies: Sore throat Cardiac: denies: Chest pain / pressure, Palpitations Respiratory: denies: Cough GI: reports: Nausea. denies: Vomiting, Constipation, Diarrhea : denies: Dysuria Neurologic: reports: Generalized weakness. 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 CIRCULATING: Hysterectomy - Present Medications Home Medications: Ambulatory Orders Medication Instructions Recorded Confirmed Amlodipine Besylate 5 mg PO DAILY 05/13/18 01/18/23 Atorvastatin Calcium 20 mg PO DAILY 05/13/18 01/18/23 Levothyroxine Sodium 50 mcg PO DAILY 01/18/23 01/18/23 - Allergies Allergies/Adverse Reactions: Allergies Allergy/AdvReac Type Severity Reaction Status Date / Time No Known Drug Allergies Allergy Verified 01/18/23 09:37 - Social History Does the pt smoke?: No Smoking Status: Never smoker Does the pt drink ETOH?: Yes Does the pt have substance abuse?: No PD ED PE NORMAL - Vitals Vital signs reviewed: Yes - General General: Alert and oriented X 3, No acute distress, Well developed/nourished - Neck Neck: Supple, no meningeal sign, No adenopathy - Cardiac Cardiac: RRR, No murmur - Respiratory Respiratory: Clear bilaterally - Abdomen Abdomen: Normal bowel sounds, Soft, Non distended, No organomegaly - Derm Derm: Normal color, Warm and dry - Extremities Extremities: Normal ROM s pain, No edema, No calf tenderness / cord - Neuro Neuro: Alert and oriented X 3, No motor deficit, Normal speech Results - Vitals Vitals: Vital Signs - 24 hr 01/18/23 01/18/23 01/18/23 09:31 11:07 15:52 Temperature 36.7 C 37 C 36.7 C Heart Rate 87 72 83 Respiratory 15 20 16 Rate Blood Pressure 127/81 H 124/75 144/87 H O2 Saturation 98 100 99 Oxygen O2 Source Room air - Labs Labs: Laboratory Tests 01/18/23 01/18/23 01/18/23 10:18 10:18 11:14 WBC 8.0 RBC 5.24 Hgb 14.7 Hct 46.2 MCV 88.2 MCH 28.1 MCHC 31.8 L RDW 16.1 H Plt Count 500 H MPV 8.2 Neut # (Auto) 6.4 Lymph # (Auto) 1.1 L [place] # (Auto) 0.4 Eos # (Auto) 0.0 Baso # (Auto) 0.1 Absolute Nucleated RBC 0.00 Nucleated RBC % 0.0 Sodium 134 L Potassium 3.4 L Chloride 94 L Carbon Dioxide 28 Anion Gap 12.0 BUN 8 Creatinine 0.6 Estimated GFR (MDRD) 98 Glucose 130 H Calcium 9.6 Total Bilirubin 0.5 AST 14 ALT 13 Alkaline Phosphatase 82 Total Protein 8.2 Albumin 4.1 Globulin 4.1 Albumin/Globulin Ratio 1.0 Lipase 16 Urine Color YELLOW Urine Clarity CLEAR Urine pH 6.0 Ur Specific [place] 1.020 Urine Protein 100 H Urine Glucose (UA) NEGATIVE Urine Ketones 40 H Urine Occult Blood LARGE H Urine Nitrite NEGATIVE Urine Bilirubin NEGATIVE Urine Urobilinogen 0.2 (NORMAL) Ur Leukocyte Esterase NEGATIVE Urine RBC 6-10 H Urine WBC 0-3 Ur Squamous Epith Cells FEW Squamous Urine Bacteria Few Urine Casts 0-2 Hyaline Casts Urine Mucus Few Strands Ur Microscopic Review INDICATED Urine Culture Comments NOT INDICATED - Rads (name of study) chest CT Relevant Findings:: Prelim report reviewed (right lung field mass c/w malignancy, with several necrotic lymph nodes right perihilar, apex plus. ), EMP independent interpretation of test PD Medical Decision Making - ED course Complexity details: reviewed old records (CT images and report from yesterday, showing prior known kidney mass. New finding was lung field mass c/w likely cancer. ), reviewed results (had partial view of lung tumor from abd/pelvic CT yesterday. I ordered and got chest CT to more fully evaluate chest mass. 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 ) Reviewed Lab Results: chest CT showing the full extent of the chest mass seen yesterday on abd imaging. It also showed lymph node necrotic changes right apex, perihilar. These will need biopsying for tissue type and she will need referral to Oncology. PCP was not in office today. Pt to call them tomorrow to initiate referrals for Oncology and RT for biopsy. Pt is okay with plan of home and to call PCP tomorrow. Currently no Rx needed fro her. Departure - Departure Disposition: , Self Care Clinical Impression: Weakness, Weight loss, Lung tumor Condition: Stable Record reviewed to determine appropriate education?: Yes Follow-Up: Kelly Schilling ARNP [Primary Care Provider] - Comments: Your CT scan from yesterday of the abdomen and pelvis showed a apparently previously known kidney fatty tumor or such that is smaller than it previously had been. Your scan did show in the longer lower lung field a lung tumor on the right side. We did the CT of the chest today to better define that. There is the demonstrated right lung mass that appears in the lower posterior part of the lung. There are also a few small lymph nodes that appear inflamed so presumably local spread to the lymph nodes. This does look like a malignant type tumor given the character and lymph node involvement. This will want a biopsy as well as referral to a cancer specialist (oncologist). Call your primary care office tomorrow and talk with your provider to start lining up those referrals. I did talk with our radiologist here at [facility] and the impression was that this would be approachable for biopsy here at our facility. Stay well-hydrated. Try to eat as best you can. Protein containing shakes can be good for calories without much volume to have to eat. Forms: PCP List Discharge Date/Time: 01/18/23 15:53
[2023-01-18 10:21] LABS: BASOPHILS # (AUTO) 0.1 10^3/uL (0.0-0.1); BASOPHILS % (AUTO) 0.6 %; EOSINOPHILS % (AUTO) 0.1 %; HCT - HEMATOCRIT 46.2 % (37.0-47.0); HGB - HEMOGLOBIN 14.7 g/dL (12.0-16.0); LYMPHOCYTES # (AUTO) 1.1 10^3/uL (1.5-3.5); MEAN CORPUSCULAR HEMOGLOBIN 28.1 pg (27.0-31.0); MEAN CORPUSCULAR HGB CONC 31.8 g/dL (32.0-36.0); MEAN CORPUSCULAR VOLUME 88.2 fL (81.0-99.0); MEAN PLATELET VOLUME 8.2 fL (7.9-10.8); MONOCYTES # (AUTO) 0.4 10^3/uL (0.0-1.0); NEUTROPHILS # (AUTO) 6.4 10^3/uL (1.5-6.6); NEUTROPHILS % (AUTO) 79.9 %; PLT - PLATELET COUNT 500 10^3/uL (130-450); RED BLOOD COUNT 5.24 10^6/uL (4.20-5.40); RED CELL DISTRIBUTION WIDTH 16.1 % (12.0-15.0)
[2023-01-18 10:36] LABS: ALBUMIN 4.1 g/dL (3.2-5.5); BILIRUBIN,TOTAL 0.5 mg/dL (0.2-1.0); CALCIUM 9.6 mg/dL (8.5-10.3); CREATININE 0.6 mg/dL (0.6-1.3); POTASSIUM 3.4 mmol/L (3.5-4.5); TOTAL PROTEIN 8.2 g/dL (6.4-8.9)
[2023-01-18] MEDS ORDERED: ONDANSETRON 4 MG/2 ML VIAL IVP STA (11:39)
[2023-01-18] MEDS ORDERED: SODIUM CHLORIDE 0.9% 1,000 ML IV STA (11:39)
[2023-01-18 12:04] LABS: BILIRUBIN,URINE NEGATIVE (NEGATIVE); GLUCOSE, URINE (UA) NEGATIVE (NEGATIVE); KETONES,URINE (UA) 40 mg/dL (NEGATIVE); LEUKOCYTE ESTERASE, URINE NEGATIVE (NEGATIVE); NITRITE,URINE NEGATIVE (NEGATIVE); OCCULT BLOOD,URINE LARGE (NEGATIVE); PROTEIN,URINE 100 mg/dL (NEGATIVE); UROBILINOGEN,URINE 0.2 (NORMAL) E.U./dL (NORMAL)
[2023-01-18 12:08] LABS: CLARITY,URINE CLEAR (CLEAR)
[2023-01-18 12:15] LABS: BACTERIA,URINE Few /HPF (None Seen); MUCUS,URINE Few Strands; SQUAMOUS EPITHELIAL CELL,UR FEW Squamous (<= Few); WBC,URINE 0-3 /HPF (0-5)
[2023-01-18 12:16] LABS: CASTS, URINE 0-2 Hyaline Casts /LPF
--- NOTE | 2023-01-18 13:43 | CT Report ---
PROCEDURE: CHEST W INDICATIONS: abd CT yesterday= lung mass. eval better CONTRAST: 100ml omni 300 TECHNIQUE: After the administration of intravenous contrast, 1 mm axial images were acquired from the pulmonary apices through the posterior costophrenic angles. Axial 5 mm soft tissue kernel reconstructions were performed as well as 8 mm axial MIP and coronal and sagittal 5 mm reformations. For radiation dose reduction, the following was used: automated exposure control, adjustment of mA and/or kV according to patient size. COMPARISON: 01/17/2023 CT FINDINGS: Image quality: Good Lungs and pleura:Right lower lobe lung mass measures 5.3 x 5.1 x 6.9 cm. Another right lower lobe nod ule is seen adjacent to the major fissure measures 0.9 cm (3/187). No pleural effusions. Mediastinum, heart, and esophagus: Possible small hiatal hernia. Necrotic subcarinal lymph node measu res 4.4 cm in short axis. There is also necrotic right hilar lymphadenopathy. Heart size is normal. Chest wall and thyroid: Thyroid chest wall are unremarkable. Upper abdomen: Separately dictated from yesterday's CT. Fat-containing lesion in the left kidney agai n seen. Bones: Degenerative changes, no acute or suspicious finding. IMPRESSION: Right lower lobe lung cancer with hilar and mediastinal lymphadenopathy. Reviewed by: Nikunj Shipley MD on 01/18/2023 1:42 PM PST Approved by: Nikunj Shipley MD on 01/18/2023 1:42 PM PST Station ID: [id number]
[2023-01-18] MEDS ORDERED: iohexoL-300 100 ML VIAL IVP ONE (15:14)
[2023-01-18 16:01] VITALS: BP 144/87; O2SAT 99
== END 2023-01-18 15:53 | disposition home or self-care (01) ==
LOC: ED 09:25
DX: D49.1 Neoplasm of unspecified behavior of respiratory system (principal); R53.1 Weakness; R63.4 Abnormal weight loss; I10 Essential (primary) hypertension; Z79.899 Other long term (current) drug therapy
CPT/HCPCS: 36415; 71260; 80053; 81001; 83690; 85025; 96374; 99284; Q9967; 81003; 87086